=== PATIENT | male | born 1980 | race Asian ===

== ENCOUNTER 2021-03-06 15:18 | Emergency (ER) | payer OTHER ==
--- NOTE | 2021-03-06 15:41 | PHYS DOC ---
General Adult EDM: Chief Complaint: CODE BLUE HPI: HPI: 41-year-old male [facility] local [facility] as a CODE BLUE. The entire history is provided by EMS. It was an unwitnessed arrest at the local [facility]. Unsure of downtime. Staff at the present worked on the patient for about 20 minutes prior to EMS arrival. EMS gave 5 rounds of epinephrine prior to arrival to the emergency room. They had asystole the entire time. Narcan was also given. Review of Systems: Review of Systems: Unable to assess due to critical condition Physical Exam: PE: Constitutional: Well developed, well nourished, severe acute distress [] HENT: Normocephalic, atraumatic, bilateral external ears normal, oropharynx moist, no oral exudates, nose normal. [] Eyes: Fixed and dilated [] Neck: No signs of trauma [] Cardiovascular: Asystole [] Lungs & Thorax: Bilateral breath sounds clear to auscultation with artificial respirations [] Abdomen: soft, no masses, no pulsatile masses. [] Skin: Warm, dry, no erythema, no rash. [] Back: No obvious signs of trauma. [] Extremities: No cyanosis, no clubbing, no edema. [] Neurologic: Unresponsive. [] [] EKG: EKG: [] Radiology/Procedures: Radiology/Procedures: [] Heart Score: C/O Chest Pain: N/A Risk Factors: Risk Factors: DM, Current or recent (<one month) smoker, HTN, HLP, family history of CAD, obesity. Risk Scores: Score 0 - 3: 2.5% MACE over next 6 weeks - Discharge Home Score 4 - 6: 20.3% MACE over next 6 weeks - Admit for Clinical Observation Score 7 - 10: 72.7% MACE over next 6 weeks - Early Invasive Strategies Course & Med Decision Making: Course & Med Decision Making Pertinent Labs and Imaging studies reviewed. (See chart for details) The patient arrived with an artificial compression device attached. The patient was immediately transferred over to the bed. The I gel was replaced with an endotracheal tube. I placed the tube with glide scope and a single attempt. I visualized the tube going through the vocal cords. We confirmed with color change and there were bilateral breath sounds. Definitive artificial respirations did not change the patient's condition. He was asystole at all rhythm checks. We also gave epinephrine with no effect. Despite all of the efforts made, the patient was pronounced at 1527. [] Dragon Disclaimer: Dragon Disclaimer: This electronic medical record was generated, in whole or in part, using a voice recognition dictation system. Departure Departure: Disposition: 20 Condition: Referrals: PCP,AGUILAR (PCP) REJI AZAR DO Mar 06, 2021 15:41
[2021-03-06] MEDS ORDERED: EPINEPHrine SYRINGE 1 MG/10 ML SYRINGE. ONE (16:00)
== END 2021-03-06 20:05 ==
LOC: ER 15:18
DX: U07.1 COVID-19 (principal); I46.9 Cardiac arrest, cause unspecified
CPT/HCPCS: 31500; 87426; 99285; J0171